=== PATIENT | male | born 1975 | race Caucasian/White ===

== ENCOUNTER 2024-10-07 05:57 | Emergency (ER) | payer BC ==
[2024-10-07] MEDS ORDERED: KETOROLAC 30 MG/ML INJ ONE (06:28)
[2024-10-07] MEDS ORDERED: NA CHLORIDE 0.9% 1,000 ML ONE (06:28)
[2024-10-07 06:44] LABS: Absolute Eosinophils 0.2 K/uL (0-0.5); Absolute Lymphocytes (CBC) 1.6 K/uL (0.7-4.9); Absolute Monocytes 0.9 K/uL (0.1-1.3); Absolute Neutrophil 5.3 K/uL (1.8-8.0); Basophils % 0.6 % (0-1.3); Eosinophils % 2.5 % (0-4.4); Hemoglobin 16.9 g/dL (13.6-17.9); Lymphocytes % 20.3 % (15.3-44.8); MCH 29.2 pg (27.0-35.0); MCHC 33.9 g/dL (32.0-36.0); MCV 86.3 fL (80-100); MPV 8.6 fL (7.6-11.3); Monocytes % 11.3 % (3.3-12.3); Neutrophils % 65.3 % (41.7-73.7); Nucleated Red Blood Cells % 0.1 % (0-0); Platelets 249 thou/uL (152-406); RBC Red Blood Cell Count 5.79 M/uL (4.33-5.43); Red Cell Distribution Width 13.3 % (12.1-15.2)
[2024-10-07 07:01] LABS: Albumin/Globulin Ratio 1.1 (1.1-1.8); Anion Gap 8.8 mEq/L (5.0-15.0); Bilirubin Total 0.7 mg/dL (0.2-1.0); Globulin 3.5 g/dL (2.3-3.5); Potassium 3.8 mEq/L (3.5-5.1); Protein, Total 7.5 g/dL (6.4-8.2)
[2024-10-07 07:05] LABS: Sqamous Epithelial <5 /HPF (None Seen); Urine Bacteria None Seen /HPF (<20); Urine Culture Reflex Order NOT NEEDED; Urine RBC <5 /HPF (None Seen); Urine WBC <5 /HPF (<5)
[2024-10-07 07:12] LABS: Specific Gravity 1.014 (1.005-1.030); Urine Bilirubin NEGATIVE (Negative); Urine Blood Negative (Negative); Urine Clarity Clear (Clear); Urine Color Yellow (Yellow); Urine Glucose NEGATIVE (Negative); Urine Ketones NEGATIVE (Negative); Urine Microscopic Reflex YN NO UMIC; Urine Nitrite NEGATIVE (Negative); Urine Protein NEGATIVE (Negative); Urine Urobilinogen Normal (Normal)
[2024-10-07] MEDS ORDERED: ONDANSETRON 4 MG/2 ML VIAL ONE (07:25)
[2024-10-07] MEDS ORDERED: MORPHINE 4 MG/ML SYR ONE (07:26)
--- NOTE | 2024-10-07 07:56 | RAD REPORT ---
EXAMINATION: CT ABDOMEN AND PELVIS WITH CONTRAST CLINICAL INDICATION: Right flank pain TECHNIQUE: CT abdomen and pelvis was performed, after the administration of IV contrast, as per [facility] protocol. Axial, sagittal and coronal reconstructions were obtained. One or more of the following dose reduction techniques were used: Automated exposure control, adjustment of the mA and k V according to patient size, and iterative reconstruction. Unless otherwise specified, incidental findings do not require dedicated imaging follow-up. COMPARISON: No prior exam. FINDINGS: LOWER CHEST: The visualized lung bases are clear. Postsurgical changes are present about the stomach. LIVER: Normal in size and contour. No focal lesion. Grossly unremarkable gallbladder. SPLEEN: Normal size. No focal lesion. PANCREAS: No mass, ductal dilation, or delmar-pancreatic fluid. ADRENALS: Normal; no mass. KIDNEYS: Normal size and contour. No hydronephrosis. 17 mm cyst inferior pole right kidney. GASTROINTESTINAL TRACT: No evidence of free air, significant intra-abdominal free fluid, bowel obstru ction or abscess. Moderate stool is present throughout the colon. APPENDIX: Normal appendix. LYMPH NODES: No lymphadenopathy. MUSCULOSKELETAL: Mild multilevel spinal degenerative changes. ADDITIONAL FINDINGS: Small fat-containing right inguinal hernia. IMPRESSION: No acute or concerning abnormalities seen in the abdomen or pelvis.
--- NOTE | 2024-10-07 08:28 | ER ---
Nurse's Notes [facility] Name: Mario Owens Age: 49 yrs Sex: Male : 1975 Arrival Date: 10/07/2024 Time: 05:57 Bed 20 Private MD: Diagnosis: Right Back Pain Presentation: 10/07 06:11 Chief complaint: Patient states: I have pain in the right side and in mu right flank. I kd3 had some diarrhea last night. I had something similar to this and it was my gall bladder. I have also had kidney stones before. But this pain is different than anything i have had before. It feels like someone is stabbing me. Coronavirus screen: Vaccine status: Patient reports receiving the 2nd dose of the covid vaccine. Ebola Screen: No symptoms or risks identified at this time. Initial Sepsis Screen: Does the patient meet any 2 criteria? No. Patient's initial sepsis screen is negative. Does the patient have a suspected source of infection? No. Patient's initial sepsis screen is negative. Risk Assessment: Do you want to hurt yourself or someone else? Patient reports no desire to harm self or others. Onset of symptoms was October 05, 2024. 06:11 Method Of Arrival: Ambulatory kd3 06:11 Acuity: MIKE 3 kd3 Triage Assessment: 06:13 General: Appears uncomfortable, Behavior is calm, cooperative. Pain: Complains of pain kd3 in right mid back, right low back and posterior aspect of right lateral abdomen. Neuro: Level of Consciousness is awake, alert, obeys commands, Oriented to person, place, time, situation. GI: Abdomen is non-distended. Historical: - Allergies: 06:13 No Known Allergies; kd3 - Immunization history:: Adult Immunizations up to date. - Infectious Disease History:: Denies. - Social history:: Smoking status: Patient denies any tobacco usage or history of. Screenin:38 [facility] ED Fall Risk Assessment (Adult) History of falling in the last 3 months, kd3 including since admission No falls in past 3 months (0 pts) Confusion or Disorientation No (0 pts) Intoxicated or Sedated No (0 pts) Impaired Gait No (0 pts) Mobility Assist Device Used No (0 pt) Altered Elimination No (0 pt) Score/Fall Risk Level 0 - 2 = Low Risk Oriented to surroundings. Abuse screen: Denies threats or abuse. Denies injuries from another. Nutritional screening: No deficits noted. Tuberculosis screening: No symptoms or risk factors identified. Assessment: 06:39 GI: Bowel sounds present X 4 quads. Abdomen is tender to palpation in back. kd3 06:39 General: Appears uncomfortable, Behavior is calm, cooperative. General: Pt seen and kd3 triaged by this RN. PT blood work collected and sent to the lab. Pt's IV fluids administered in the triage room along withy Toradol for pain. PT placed back in the waiting room due to ED saturation. Pt has no further requests. . Neuro: Level of Consciousness is awake, alert, obeys commands, Oriented to person, place, time, situation. Cardiovascular: Patient's skin is warm and dry. Respiratory: Airway is patent Trachea midline Respiratory effort is even, unlabored, Respiratory pattern is regular, symmetrical. Vital Signs: 06:11 BP 158 / 103; Pulse 74; Resp 20; Temp 97.7; Pulse Ox 98% on R/A; Weight 108.86 kg; kd3 Height 5 ft. 11 in. ; Pain 6/10; 08:46 BP 135 / 93; Pulse 64; Resp 16; Pulse Ox 94% ; bp 06:11 Body Mass Index 33.47 (108.86 kg, 180.34 cm) kd3 06:11 Pain Scale: Adult kd3 ED Course: 06:02 Patient arrived in ED. gm2 06:13 Triage completed. kd3 06:13 Arm band placed on right wrist. kd3 06:20 Melida Rangel, RN is Primary Nurse. kd3 06:20 Inserted saline lock: 20 gauge in left antecubital area, using aseptic technique. Blood kd3 collected. Flushed with 10 mL NS. 06:24 Kelton Leon MD is Attending Physician. sp4 06:38 No provider procedures requiring assistance completed. kd3 06:39 Patient has correct armband on for positive identification. Provided Education on: kd3 fluids . 06:41 CRP Sent. kd3 06:41 CBC with Diff Sent. kd3 06:41 CMP Sent. kd3 06:41 Lipase Sent. kd3 06:41 Urinalysis w/ reflexes Sent. kd3 06:41 Initial lab(s) drawn, by me, sent to lab. Urine collected: clean catch specimen, clear. kd3 07:02 Attending Physician role handed off by Kelton Leon MD ec2 07:02 Owen Kilpatrick MD is Attending Physician. ec2 07:14 CT Abd/Pelvis - IV Contrast Only In Process Unspecified. EDMS 08:46 IV discontinued, intact, bleeding controlled, No redness/swelling at site. Pressure bp dressing applied. Administered Medications: 06:37 Drug: Ketorolac IVP 30 mg IVP once Route: IVP; Site: left antecubital; kd3 08:47 Follow up: Response: No adverse reaction bp 06:37 Drug: NS 0.9% IV 1000 ml IV at 1 bolus Per protocol; to be given as a bolus over 60 kd3 minutes Route: IV; Rate: 1 bolus; Site: left antecubital; 08:47 Follow up: IV Status: Completed infusion bp 07:29 Drug: Ondansetron IVP 8 mg IVP once; over 2 minutes Route: IVP; Site: left antecubital; bp 08:47 Follow up: Response: No adverse reaction bp 07:30 Drug: morphine IVP or IV 6 mg IVP once over 4 mins Route: IVP; Infused Over: 4 mins; bp Site: left antecubital; 08:48 Follow up: Response: No adverse reaction bp Medication: 06:39 VIS not applicable for this client. kd3 Outcome: 08:28 Discharge ordered by . ec2 08:46 Discharged to home ambulatory, bp 08:46 Condition: stable 08:46 Discharge instructions given to patient, Instructed on discharge instructions, follow up and referral plans. medication usage, Demonstrated understanding of instructions, follow-up care, medications, Prescriptions given X 1, 08:48 Patient left the ED. bp Signatures: Dispatcher [employer] EDMS Álvaro Alberto RN RN bp Melida Rangel RN RN kd3 Kelton Leon MD MD sp4 Owen Kilpatrick MD MD 2 Sandra Ashley 2 Corrections: (The following items were deleted from the chart) 08:47 07:29 morphine IVP or IV 6 mg IVP in left antecubital over 4 mins bp bp
--- NOTE | 2024-10-07 08:28 | EDPHYS ---
Physician Documentation [facility] Name: Mario Owens Age: 49 yrs Sex: Male : 1975 Arrival Date: 10/07/2024 Time: 05:57 Bed 20 Private MD: ED Physician Owen Kilpatrick HPI: 10/07 07:19 This 49 yrs old Male presents to ER via Ambulatory with complaints of ec2 Possible Kidney Stone, Back Pain, Diarrhea. 07:19 Patient arrives today for evaluation of right-sided flank pain. Patient reports pain ec2 has been intermittent with worsening with positional movements. Patient reports some issues with diarrhea. Patient reports history of gallstones. Reports no change with p.o. intake.. Historical: - Allergies: 06:13 No Known Allergies; kd3 - Immunization history:: Adult Immunizations up to date. - Infectious Disease History:: Denies. - Social history:: Smoking status: Patient denies any tobacco usage or history of. ROS: 07:19 Constitutional: as per hpi ec2 Exam: 07:19 Constitutional: GEN: NAD Head: atraumatic Eyes: EOMI Ears: External ears are ec2 normal. CV: regular rate LUNGS: no respiratory distress ABD: non-distended, soft, not guarding, not rigid, right lateral back with TTP without deformities or crepitus appreciated. SKIN: no evidence of rashes MSK: no evidence of trauma Vital Signs: 06:11 BP 158 / 103; Pulse 74; Resp 20; Temp 97.7; Pulse Ox 98% on R/A; Weight 108.86 kg; kd3 Height 5 ft. 11 in. ; Pain 6/10; 08:46 BP 135 / 93; Pulse 64; Resp 16; Pulse Ox 94% ; bp 06:11 Body Mass Index 33.47 (108.86 kg, 180.34 cm) kd3 06:11 Pain Scale: Adult kd3 MDM: 06:25 Medical Screening Exam initiated sp4 07:12 ED course: Patient signed out to me by. Physician, in brief arrives today for ec2 evaluation of right-sided abdominal pain.CBC is reassuring, metabolic profile with appropriate lecture lites and renal function. Lipase is minimally elevated at 122, slight elevation in CRP. Plan to follow-up CT imaging.. 07:13 ED course: Urine noninfectious. ec2 07:19 Data reviewed: vital signs, nurses notes. ED course: Patient arrives today for ec2 evaluation of right lateral back pain. Examination is revealing for well-appearing nontoxic individuals otherwise in no acute distress with a reassuring examination. Pending CT imaging.. 08:27 ED course: CT on pelvis shows no acute process. Will discharge home, suspect ec2 musculoskeletal pain. Return precautions given. 10/07 06:21 Order name: CBC with Diff; Complete Time: 07:11 kd3 10/07 06:21 Order name: CMP; Complete Time: 07:11 kd3 10/07 06:21 Order name: Lipase; Complete Time: 07:11 kd3 10/07 06:21 Order name: Urinalysis w/ reflexes; Complete Time: 07:39 kd3 10/07 06:25 Order name: CRP; Complete Time: 07:11 sp4 10/07 06:24 Order name: CT Abd/Pelvis - IV Contrast Only; Complete Time: 08:27 sp4 10/07 06:21 Order name: IV Saline Lock; Complete Time: 06:21 kd3 10/07 06:21 Order name: Labs collected and sent; Complete Time: 06:21 kd3 Administered Medications: 06:37 Drug: Ketorolac IVP 30 mg IVP once Route: IVP; Site: left antecubital; kd3 08:47 Follow up: Response: No adverse reaction bp 06:37 Drug: NS 0.9% IV 1000 ml IV at 1 bolus Per protocol; to be given as a bolus over 60 kd3 minutes Route: IV; Rate: 1 bolus; Site: left antecubital; 08:47 Follow up: IV Status: Completed infusion bp 07:29 Drug: Ondansetron IVP 8 mg IVP once; over 2 minutes Route: IVP; Site: left antecubital; bp 08:47 Follow up: Response: No adverse reaction bp 07:30 Drug: morphine IVP or IV 6 mg IVP once over 4 mins Route: IVP; Infused Over: 4 mins; bp Site: left antecubital; 08:48 Follow up: Response: No adverse reaction bp Disposition Summary: 10/07/24 08:28 Discharge Ordered Notes: Location: Home ec2 Condition: Stable ec2 Diagnosis - Right Back Pain ec2 Followup: ec2 - With: Private Physician - When: - Reason: Re-evaluation by your physician Discharge Instructions: - Discharge Summary Sheet ec2 - Acute Back Pain, Adult ec2 Forms: - Medication Reconciliation Form ec2 - Antibiotic Education ec2 - Prescription Opioid Use ec2 - Patient Portal Instructions ec2 - Leadership Thank You Letter ec2 Prescriptions: - methocarbamol 500 mg Oral tablet - take 1 tablet ORAL route 4 times per day; 15 tablet; Refills: 0, Product ec2 Selection Permitted Signatures: Dispatcher [employer] Álvaro Fosneca RN RN bp Doucette, Kyli, RN RN kd3 Kelton Leon MD MD sp4 Owen Kilpatrick MD MD ec2
[2024-10-07 09:02] VITALS: TEMP 97.7
[2024-10-07 09:08] VITALS: BP 135/93; O2SAT 94
== END 2024-10-07 08:48 | disposition home or self-care (01) ==
LOC: ER 05:57
DX: M54.9 Dorsalgia, unspecified (principal); R19.7 Diarrhea, unspecified
CPT/HCPCS: 96361; 85025; 36415; 81003; 83690; 80053; 86140; 74177; 96375; 96374; 99284; Q9967; J2405; J7030